=== PATIENT | male | born 1965 | race African-American/Black ===

== ENCOUNTER 2018-12-26 16:49 | Inpatient (IN) | payer OTHER ==
[2018-12-26 17:56] VITALS: BMI 32.8
--- NOTE | 2018-12-26 20:29 | HP ---
CIWA Score Nausea/Vomitin-Mild Nausea/No Vomiting Muscle Tremors: 1-None Visible, but Schuyler Anxiety: 4-Mod. Anxious/Guarded Agitation: 4-Moderately Restless Paroxysmal Sweats: 4-Forehead w/Sweat Beads Orientation: 2-Disoriented Date<2 days Tacttile Disturbances: 2-Mild Itch/Numbness/Burn Auditory Disturbances: 0-None Visual Disturbances: 1-Very Mild Sensitivity Headache: 3-Moderate CIWA-Ar Total Score: 22 - Admission Criteria OASAS Guidelines: Admission for Medically Managed Detox: Requires at least one of the followin. CIWA greater than 12 2. Seizures within the past 24 hours 3. Delirium tremens within the past 24 hours 4. Hallucinations within the past 24 hours 5. Acute intervention needed for co occurring medical disorder 6. Acute intervention needed for co occurring psychiatric disorder 7. Severe withdrawal that cannot be handled at a lower level of care (continued vomiting, continued diarrhea, abnormal vital signs) requiring intravenous medication and/or fluids 8. Patient presents the following: CIWA greater than 12 (ciwa 22), Acute intervention needed for co-occurring med or psych disorder (hx/o htn) Admission Criteria Met: Admission criteria met Admission ROS [facility] Chief Complaint: C/O WORSENING WITHDRAWAL SX'S Allergies/Adverse Reactions: Allergies Allergy/AdvReac Type Severity Reaction Status Date / Time No Known Allergies Allergy Verified 12/26/18 19:37 History of Present Illness: 53 Y.O. MALE WITH HX/O ALCOHOLISM HERE FOR DETOX. CLIENT IS REFERRED BY [facility] AFTER SEEKING SERVICES THEIR EARLIER BUT WAS AT [facility]. HE PRESENTS WITH C/O WORSENING WITHDRAWAL SX'S. CIWA 22. UTOX + THX, SOILA, BZO. CLIENT DENIES BENZO USE. STATES LAST DETOX 6 MONTHS AGO AT [facility]. HE REPORTS DRINKING 3 QUARTS OF HENESSEY AND 6- PACK -24 OZ BEER DAILY. LAST DRINK EARLY THIS MORNING. DENIES HX/O SIEZURES, AVH, SI/HI. REPORTS LONGEST CLEAN TIME 2 YEARS WHILE INCARCERATED. LIVES WITH FAMILY, UNEMPLOYED, DENIES LEGALS. PMHX- HTN, OA PSYCH- DENIES Exam Limitations: No Limitations - Ebola screening Have you traveled outside of the country in the last 21 days: No (N) Have you had contact with anyone from an Ebola affected area: No Have you been sick,other than usual withdrawal symptoms: No Do you have a fever: No - Review of Systems Constitutional: Chills, Diaphoresis, Loss of Appetite, Malaise, Night Sweats, Changes in sleep EENT: reports: Dental Problems (TOP DENTURES) Respiratory: reports: No Symptoms reported Cardiac: reports: No Symptoms Reported GI: reports: Diarrhea, Nausea, Poor Appetite, Poor Fluid Intake : reports: No Symptoms Reported Musculoskeletal: reports: No Symptoms Reported Integumentary: reports: Sweating Neuro: reports: No Symptoms reported, Tingling (TIPS OF FINGERS AND TOES) Endocrine: reports: No Symptoms Reported Hematology: reports: No Symptoms Reported Psychiatric: reports: Orientated x3, Agitated (IRRITABLE), Anxious Other Systems: Reviewed and Negative Patient History - Patient Medical History Hx Anemia: No Hx Asthma: No Hx Chronic Obstructive Pulmonary Disease (COPD): No Hx Cancer: No Hx Cardiac Disorders: No Hx Congestive Heart Failure: No Hx Hypertension: Yes Hx Hypercholesterolemia: No Hx Pacemaker: No HX Cerebrovascular Accident: No Hx Seizures: No Hx Dementia: No Hx Diabetes: No Hx Gastrointestinal Disorders: No Hx Liver Disease: No Hx Genitourinary Disorders: No Hx Sexually Transmitted Disorders: No Hx Renal Disease (ESRD): No Hx Thyroid Disease: No Hx Human Immunodeficiency Virus (HIV): No Hx Hepatitis C: No Hx Depression: No Hx Suicide Attempt: No Hx Bipolar Disorder: No Hx Schizophrenia: No Other Medical History: OA, HX/O +PPD W/ TXMENT - Patient Surgical History Past Surgical History: No Hx Neurologic Surgery: No Hx Cataract Extraction: No Hx Cardiac Surgery: No Hx Lung Surgery: No Hx Breast Surgery: No Hx Breast Biopsy: No Hx Abdominal Surgery: No Hx Appendectomy: No Hx Cholecystectomy: No Hx Genitourinary Surgery: No Hx Section: No Hx Orthopedic Surgery: No Anesthesia Reaction: No - PPD History Previous Implant?: Yes Documented Results: Positive w/o proof Implanted On Prior [facility] Admission?: No PPD to be Administered?: No - Smoking Cessation Smoking history: Current every day smoker Have you smoked in the past 12 months: Yes Aproximately how many cigarettes per day: 60 Cigars Per Day: 0 Hx Chewing Tobacco Use: No Initiated information on smoking cessation: Yes 'Breaking Loose' booklet given: 12/26/18 - Substance & Tx. History Hx Alcohol Use: Yes Hx Substance Use: Yes Substance Use Type: Alcohol, Cocaine, Marijuana Hx Substance Use Treatment: Yes ([facility]) - Substances Abused Alcohol Route: Oral Frequency: Daily Amount used: liquor- 3 quarts/ BEER- 6 PACK/24OZ CANS Age of first use: 20 Date of Last Use: 12/26/18 Cocaine Route: Inhalation Frequency: Daily Amount used: 1 gm Age of first use: 25 Date of Last Use: 12/24/18 THC Route: Smoking Frequency: 3-6 times per week Amount used: $20 Age of first use: 20 Date of Last Use: 12/23/18 Family Disease History - Family Disease History Family Disease History: Other: Father (ALCOHOLISM/ HEROIN ADDICT/COCAINE) Admission Physical Exam [facility] - Vital Signs Vital Signs: Vital Signs - 24 hr 12/26/18 17:55 Temperature 98.6 F Pulse Rate 107 H Respiratory 18 Rate Blood Pressure 133/77 - Physical General Appearance: Yes: Appropriately Dressed, Moderate Distress, Tremorous ( FELT), Irritable, Sweating, Anxious HEENTM: Yes: EOMI, Normocephalic, Normal Voice, NAGA, Pharynx Normal, Other ( TOP DENTURES) Respiratory: Yes: Chest Non-Tender, Lungs Clear, Normal Breath Sounds, No Respiratory Distress, No Accessory Muscle Use Neck: Yes: No masses,lesions,Nodules, Supple, Trachea in good position Breast: Yes: Breast Exam Deferred Cardiology: Yes: Regular Rhythm, Regular Rate, S1, S2 Abdominal: Yes: Non Tender, Soft, Increased Bowel Sounds, Protuberent Genitourinary: Yes: Other (NO C/O) Back: Yes: Normal Inspection Musculoskeletal: Yes: Gait Steady, Joint Stiffness (LEFT KNEE CHRONIC PAIN) Extremities: Yes: Normal Capillary Refill, Normal Range of Motion, Non-Tender, Tremors (FELT) Neurological: Yes: Fully Oriented, Alert, Motor Strength 5/5 Integumentary: Yes: Warm, Moist Lymphatic: Yes: Within Normal Limits - Diagnostic (1) Alcohol dependence with uncomplicated withdrawal Current Visit: Yes Status: Acute (2) Cannabis dependence, uncomplicated Current Visit: Yes Status: Acute (3) Cocaine dependence, uncomplicated Current Visit: Yes Status: Acute (4) HTN (hypertension) Current Visit: Yes Status: Chronic Qualifiers: Hypertension type: essential hypertension Qualified Code(s): I10 - Essential (primary) hypertension (5) Osteoarthritis (arthritis due to wear and tear of joints) Current Visit: Yes Status: Chronic Qualifiers: Osteoarthritis location: knee Laterality: bilateral (6) Substance-induced sleep disorder Current Visit: Yes Status: Chronic (7) Nicotine dependence Current Visit: Yes Status: Chronic Qualifiers: Nicotine product type: cigarettes Substance use status: uncomplicated Qualified Code(s): F17.210 - Nicotine dependence, cigarettes, uncomplicated (8) History of positive PPD Current Visit: Yes Status: Chronic Comment: TX'ED Cleared for Admission [facility] - Detox or Rehab [facility] Level of Care: Medically Managed Detox Regimen/Protocol: Librium Claeared for Rehab Admission: No S Breath Alcohol Content Breath Alcohol Content: 0 Urine Drug Screen - Results Drug Screen Negative: No Urine Drug Screen Results: THC-Marijuana, SOILA-Cocaine, BZO-Benzodiazepines Inpatient Rehab Admission - Rehab Decision to Admit Inpatient rehab admission?: No
[2018-12-26] MEDS ORDERED: hydrOXYzine PAMOATE 25 MG CAPSULE (FP) PO PRN (20:35)
[2018-12-26] MEDS ORDERED: guaiFENesin 200 MG/10 ML 10 ML UNIT-DOSE CUPS PO PRN (20:35)
[2018-12-26] MEDS ORDERED: ONDANSETRON *ODT* 4 MG TABLET SL PRN (20:35)
[2018-12-26] MEDS ORDERED: MENTHOL/PHENOL 1 EACH UD MM PRN (20:35)
[2018-12-26] MEDS ORDERED: MAGNESIUM HYDROX 2400MG/30ML ORAL SUSPENSION 30 ML CUP PO PRN (20:35)
[2018-12-26] MEDS ORDERED: METHOCARBAMOL 500 MG TABLET PO PRN (20:35)
[2018-12-26] MEDS ORDERED: P-EPHED 60MG/TRIPROLIDI 2.5MG TABLET PO PRN (20:35)
[2018-12-26] MEDS ORDERED: IBUPROFEN 400 MG TABLET (FP) PO PRN ×2 (20:35)
[2018-12-26] MEDS ORDERED: BISMUTH SUBSALICYLATE 524 MG/30 ML UD PO PRN (20:35)
[2018-12-26] MEDS ORDERED: MAGNESIUM CITRATE 300 ML BOTTLE PO PRN (20:35)
[2018-12-26] MEDS ORDERED: MAG HYDROX/AL HYDROX/SIMETH 30 ML UNIT-DOSE CUP PO PRN (20:35)
[2018-12-26] MEDS ORDERED: ACETAMINOPHEN 325 MG TABLET (FP) PO PRN ×2 (20:35)
[2018-12-26] MEDS: chlordiazePOXIDE HCL 25 MG CAPSULE PO SCH (22:41)
[2018-12-26] MEDS: THIAMINE HCL 100 MG TABLET (FP) PO SCH (22:41)
[2018-12-27] MEDS: chlordiazePOXIDE HCL 25 MG CAPSULE PO SCH ×4 (05:50→22:30)
--- NOTE | 2018-12-27 10:28 | PN ---
[facility] CIWA - CIWA Score Nausea/Vomitin Muscle Tremors: 2 Anxiety: 2 Agitation: 2 Paroxysmal Sweats: 2 Orientation: 0-Oriented Tacttile Disturbances: 2-Mild Itch/Numbness/Burn Auditory Disturbances: 0-None Visual Disturbances: 0-None Headache: 2-Mild CIWA-Ar Total Score: 14 [facility] Progress Note (SOAP) Subjective: Interrupted sleep, tremors, muscle aches Objective: 12/27/18 10:27 Last Vital Signs Temp Pulse Resp BP Pulse Ox 97.7 F 83 18 143/74 12/27/18 09:58 12/27/18 09:58 12/27/18 09:58 12/27/18 09:58 Labs pending Assessment: 12/27/18 10:27 Withdrawal sx Plan: Continue detox
[2018-12-27 10:45] LABS: HEMATOCRIT 40.3 % (35.4-49); HEMOGLOBIN 13.8 GM/dL (11.7-16.9); MCH 30.3 pg (25.7-33.7); MCHC 34.3 g/dl (32.0-35.9); MEAN CELL VOLUME 88.5 fl (80-96); MEAN PLT VOLUME 6.8 fl (7.5-11.1); PLATELET COUNT 220 K/MM3 (134-434); RBC 4.56 M/mm3 (4.00-5.60); RDW 13.8 % (11.9-15.9); WHITE BLOOD COUNT 6.2 K/mm3 (4.0-10.0)
[2018-12-27] MEDS: PRENATAL VITAMINS W/ FOLIC ACID TABLET (FP) PO SCH (10:55)
[2018-12-27 11:08] LABS: ALBUMIN 3.4 g/dl (3.4-5.0); ANION GAP 7 MMOL/L (8-16); BILIRUBIN,TOTAL 0.2 mg/dL (0.2-1); BLOOD UREA NITROGEN 17 mg/dL (7-18); CALCIUM 8.1 mg/dL (8.5-10.1); CHLORIDE 108 mmol/L (98-107); CO2 26 mmol/L (21-32); GLUCOSE,RANDOM 89 mg/dL (74-106); POTASSIUM 3.9 mmol/L (3.5-5.1); SODIUM 141 mmol/L (136-145)
[2018-12-27 11:09] LABS: ALK PHOS 60 U/L (45-117); SGOT/AST 15 U/L (15-37); SGPT/ALT 27 U/L (13-61)
[2018-12-27] MEDS: NICOTINE 21 MG/24 HOURS TOPICAL PATCH TD SCH (12:02)
[2018-12-27] MEDS: NICOTINE POLACRILEX 4 MG GUM BUC PRN (12:03)
--- NOTE | 2018-12-27 13:10 | EKG ---
Test Reason : Blood Pressure : / mmHG Vent. Rate : 096 BPM Atrial Rate : 096 BPM P-R Int : 136 ms QRS Dur : 082 ms QT Int : 360 ms P-R-T Axes : 068 031 050 degrees QTc Int : 454 ms NORMAL SINUS RHYTHM NORMAL ECG NO PREVIOUS ECGS AVAILABLE Confirmed by MD NHUNG, NISHA ([id number]) on 12/27/2018 1:09:46 PM Referred By: Confirmed By:NISHA HOOKER MD
[2018-12-27] MEDS: chlordiazePOXIDE HCL 25 MG CAPSULE PO PRN (17:16)
[2018-12-27] MEDS: THIAMINE HCL 100 MG TABLET (FP) PO SCH (22:31)
[2018-12-27] MEDS: MELATONIN 5 MG TABLETS PO PRN (22:32)
[2018-12-28] MEDS: chlordiazePOXIDE HCL 25 MG CAPSULE PO SCH ×3 (07:36→17:25)
[2018-12-28] MEDS: PRENATAL VITAMINS W/ FOLIC ACID TABLET (FP) PO SCH (10:24)
[2018-12-28] MEDS: NICOTINE 21 MG/24 HOURS TOPICAL PATCH TD SCH (11:00)
--- NOTE | 2018-12-28 11:40 | PN ---
[facility] CIWA - CIWA Score Nausea/Vomitin-No Nausea/No Vomiting Muscle Tremors: 2 Anxiety: 3 Agitation: 1-Slight > Activity Paroxysmal Sweats: 3 Orientation: 0-Oriented Tacttile Disturbances: 1-Very Mild Itch/Numbness Auditory Disturbances: 0-None Visual Disturbances: 0-None Headache: 0-None Present CIWA-Ar Total Score: 10 S Progress Note (SOAP) Subjective: c/o interrupted sleep, tremors, fatigue Objective: 12/28/18 11:39 Vital Signs Temperature 98.2 F 12/28/18 09:30 Pulse Rate 91 H 12/28/18 09:30 Respiratory Rate 16 12/28/18 09:30 Blood Pressure 139/86 12/28/18 09:30 O2 Sat by Pulse Oximetry (%) Laboratory Last Values WBC 6.2 K/mm3 (4.0-10.0) 12/27/18 07:50 RBC 4.56 M/mm3 (4.00-5.60) 12/27/18 07:50 Hgb 13.8 GM/dL (11.7-16.9) 12/27/18 07:50 Hct 40.3 % (35.4-49) 12/27/18 07:50 MCV 88.5 fl (80-96) 12/27/18 07:50 MCH 30.3 pg (25.7-33.7) 12/27/18 07:50 MCHC 34.3 g/dl (32.0-35.9) 12/27/18 07:50 RDW 13.8 % (11.9-15.9) 12/27/18 07:50 Plt Count 220 K/MM3 (134-434) 12/27/18 07:50 MPV 6.8 fl (7.5-11.1) L 12/27/18 07:50 Sodium 141 mmol/L (136-145) 12/27/18 07:50 Potassium 3.9 mmol/L (3.5-5.1) 12/27/18 07:50 Chloride 108 mmol/L (98-107) H 12/27/18 07:50 Carbon Dioxide 26 mmol/L (21-32) 12/27/18 07:50 Anion Gap 7 MMOL/L (8-16) L 12/27/18 07:50 BUN 17 mg/dL (7-18) 12/27/18 07:50 Creatinine 1.0 mg/dL (0.55-1.3) 12/27/18 07:50 Creat Clearance w eGFR 78.47 (>60) 12/27/18 07:50 Random Glucose 89 mg/dL (74-106) 12/27/18 07:50 Calcium 8.1 mg/dL (8.5-10.1) L 12/27/18 07:50 Total Bilirubin 0.2 mg/dL (0.2-1) 12/27/18 07:50 AST 15 U/L (15-37) 12/27/18 07:50 ALT 27 U/L (13-61) 12/27/18 07:50 Alkaline Phosphatase 60 U/L (45-117) 12/27/18 07:50 Total Protein 6.0 g/dl (6.4-8.2) L 12/27/18 07:50 Albumin 3.4 g/dl (3.4-5.0) 12/27/18 07:50 RPR Titer Nonreactive (NONREACTIVE) 12/27/18 07:50 labs noted Aox3 no distress, full ROM, ambulating in the unit Assessment: 12/28/18 11:40 withdrawal sx Plan: increase PO fluids continue detox continue to monitor
[2018-12-28] MEDS: chlordiazePOXIDE HCL 25 MG CAPSULE PO PRN (12:35)
[2018-12-28] MEDS ORDERED: amLODIPine BESYLATE 10 MG TABLET (FP) PO ONE (17:15)
[2018-12-28] MEDS ORDERED: cloNIDine HCL 0.1 MG TABLET PO ONE (17:15)
[2018-12-28] MEDS ORDERED: HYDROCHLOROTHIAZIDE 25 MG TABLET (FP) PO ONE (17:15)
--- NOTE | 2018-12-28 17:19 | PN ---
S Progress Note Note: history of hypertension bp 153/93 anxious lonidine 0.1 mg po now hydrochlorothiazide 25 mgs po now then daily amlodipine 10 mgs po now then daily continue vital signs monitorig and detox
[2018-12-28] MEDS: THIAMINE HCL 100 MG TABLET (FP) PO SCH (23:05)
[2018-12-28] MEDS: MELATONIN 5 MG TABLETS PO PRN (23:05)
[2018-12-28] MEDS: chlordiazePOXIDE HCL 10 MG CAPSULE PO SCH (23:05)
[2018-12-29] MEDS: chlordiazePOXIDE HCL 10 MG CAPSULE PO SCH ×2 (07:35→10:54)
[2018-12-29 09:13] VITALS: TEMP 97.9
[2018-12-29 10:00] LABS: URINE APPEARANCE CLEAR; URINE BILIRUBIN NEGATIVE (<2.0 mg/dL); URINE COLOR STRAW; URINE GLUCOSE (UA) NEGATIVE (NEGATIVE); URINE KETONE NEGATIVE (NEGATIVE); URINE LEUK ESTERASE NEGATIVE (NEGATIVE); URINE NITRITE NEGATIVE (NEGATIVE); URINE PROTEIN NEGATIVE (NEGATIVE); URINE UROBILINOGEN NEGATIVE mg/dL (0.2-1.0)
[2018-12-29] MEDS ORDERED: amLODIPine BESYLATE 10 MG TABLET (FP) PO SCH (10:00)
[2018-12-29] MEDS ORDERED: HYDROCHLOROTHIAZIDE 25 MG TABLET (FP) PO SCH (10:00)
[2018-12-29] MEDS: PRENATAL VITAMINS W/ FOLIC ACID TABLET (FP) PO SCH (10:54)
[2018-12-29] MEDS: NICOTINE 21 MG/24 HOURS TOPICAL PATCH TD SCH (10:54)
[2018-12-29] MEDS: NICOTINE POLACRILEX 4 MG GUM BUC PRN (10:56)
--- NOTE | 2018-12-29 13:23 | PN ---
[facility] Progress Note (SOAP) Subjective: Patient denies current Withdrawal / Detox symptoms and reports that he feels well overall. Objective: PATIENT A & O X 3, OBSERVED AMBULATING ON UNIT. IN NO ACUTE DISTRESS. 12/29/18 13:21 Vital Signs Temperature 97.9 F 12/29/18 09:12 Pulse Rate 103 H 12/29/18 09:12 Respiratory Rate 18 12/29/18 09:12 Blood Pressure 115/93 12/29/18 09:12 O2 Sat by Pulse Oximetry (%) Laboratory Tests 12/27/18 12/27/18 12/27/18 07:50 07:50 07:50 WBC 6.2 RBC 4.56 Hgb 13.8 Hct 40.3 MCV 88.5 MCH 30.3 MCHC 34.3 RDW 13.8 Plt Count 220 MPV 6.8 L Sodium 141 Potassium 3.9 Chloride 108 H Carbon Dioxide 26 Anion Gap 7 L BUN 17 Creatinine 1.0 Creat Clearance w eGFR 78.47 Random Glucose 89 Calcium 8.1 L Total Bilirubin 0.2 AST 15 ALT 27 Alkaline Phosphatase 60 Total Protein 6.0 L Albumin 3.4 Urine Color Urine Appearance Urine pH Ur Specific [place] Urine Protein Urine Glucose (UA) Urine Ketones Urine Blood Urine Nitrite Urine Bilirubin Urine Urobilinogen Ur Leukocyte Esterase RPR Titer Nonreactive 12/29/18 07:40 WBC RBC Hgb Hct MCV MCH MCHC RDW Plt Count MPV Sodium Potassium Chloride Carbon Dioxide Anion Gap BUN Creatinine Creat Clearance w eGFR Random Glucose Calcium Total Bilirubin AST ALT Alkaline Phosphatase Total Protein Albumin Urine Color Straw Urine Appearance Clear Urine pH 5.0 Ur Specific [place] 1.012 Urine Protein Negative Urine Glucose (UA) Negative Urine Ketones Negative Urine Blood Negative Urine Nitrite Negative Urine Bilirubin Negative Urine Urobilinogen Negative Ur Leukocyte Esterase Negative RPR Titer LABS NOTED. Assessment: 12/29/18 13:21 COMPLETION OF DETOX REGIMEN. Plan: SINCE PATIENT DENIES CURRENT WITHDRAWAL / DETOX SYMPTOMS AND REPORTS THAT HE FEELS WELL OVERALL, AT PATIENT'S REQUEST, HE WAS GRANTED AN EARLY DISCHARGE FROM DETOX UNIT TO GO ON TO [facility] ([place], [place]) A BED IS CURRENTLY AVAILABLE THERE FOR ADMISSION.
[2018-12-29 13:24] VITALS: BP 116/92; PULSE 108
--- NOTE | 2018-12-29 13:29 | DS ---
[facility] Detox Discharge Summary Admission Date: 12/26/18 Discharge Date: 12/29/18 - History Present History: Alcohol Dependence, Cannabis Dependence, Cocaine Dependence Additional Comments: PATIENT DENIES CURRENT WITHDRAWAL / DETOX SYMPTOMS AND REPORTS THAT HE FEELS WELL OVERALL AT TIME OF DISCHARGE FROM DETOX UNIT. PATIENT GOING ON TO [facility] ([place], [place]) FOR AFTERCARE. PATIENT WAS DISCHARGED FROM DETOX UNIT TO BE TAKEN OVER TO REHAB UNIT IN STABLE MEDICAL CONDITION. Pertinent Past History: HTN, History of Osteoarthritis Of Bilateral Knees, Nicotine Dependence, History of Positive PPD (Completed Treatment in Past). - Physical Exam Results Vital Signs: Vital Signs Temperature 97.9 F 12/29/18 13:24 Pulse Rate 108 H 12/29/18 13:24 Respiratory Rate 18 12/29/18 13:24 Blood Pressure 116/92 12/29/18 13:24 O2 Sat by Pulse Oximetry (%) Pertinent Admission Physical Exam Findings: WITHDRAWAL SYMPTOMS. Laboratory Tests 12/27/18 12/27/18 12/27/18 07:50 07:50 07:50 WBC 6.2 RBC 4.56 Hgb 13.8 Hct 40.3 MCV 88.5 MCH 30.3 MCHC 34.3 RDW 13.8 Plt Count 220 MPV 6.8 L Sodium 141 Potassium 3.9 Chloride 108 H Carbon Dioxide 26 Anion Gap 7 L BUN 17 Creatinine 1.0 Creat Clearance w eGFR 78.47 Random Glucose 89 Calcium 8.1 L Total Bilirubin 0.2 AST 15 ALT 27 Alkaline Phosphatase 60 Total Protein 6.0 L Albumin 3.4 Urine Color Urine Appearance Urine pH Ur Specific [place] Urine Protein Urine Glucose (UA) Urine Ketones Urine Blood Urine Nitrite Urine Bilirubin Urine Urobilinogen Ur Leukocyte Esterase RPR Titer Nonreactive 12/29/18 07:40 WBC RBC Hgb Hct MCV MCH MCHC RDW Plt Count MPV Sodium Potassium Chloride Carbon Dioxide Anion Gap BUN Creatinine Creat Clearance w eGFR Random Glucose Calcium Total Bilirubin AST ALT Alkaline Phosphatase Total Protein Albumin Urine Color Straw Urine Appearance Clear Urine pH 5.0 Ur Specific [place] 1.012 Urine Protein Negative Urine Glucose (UA) Negative Urine Ketones Negative Urine Blood Negative Urine Nitrite Negative Urine Bilirubin Negative Urine Urobilinogen Negative Ur Leukocyte Esterase Negative RPR Titer LABS NOTED. - Treatment Hospital Course: Detox Protocol Followed, Detoxed Safely, Responded well, Discharged Condition Good, Rehab Referral Accepted Patient has Accepted a Rehab Referral to: [facility] ([place], [place]). - Medication Discharge Medications: Ambulatory Orders No Home Medications 07/15/12 - Diagnosis (1) Alcohol dependence with uncomplicated withdrawal Current Visit: Yes Status: Acute (2) Cannabis dependence, uncomplicated Current Visit: Yes Status: Acute (3) Cocaine dependence, uncomplicated Current Visit: Yes Status: Acute (4) HTN (hypertension) Current Visit: Yes Status: Chronic Qualifiers: Hypertension type: essential hypertension Qualified Code(s): I10 - Essential (primary) hypertension (5) History of positive PPD Current Visit: Yes Status: Chronic (6) Nicotine dependence Current Visit: Yes Status: Chronic Qualifiers: Nicotine product type: cigarettes Substance use status: uncomplicated Qualified Code(s): F17.210 - Nicotine dependence, cigarettes, uncomplicated (7) Osteoarthritis (arthritis due to wear and tear of joints) Current Visit: Yes Status: Chronic Qualifiers: Osteoarthritis location: knee Osteoarthritis type: unspecified Laterality : bilateral Qualified Code(s): M17.0 - Bilateral primary osteoarthritis of knee (8) Substance-induced sleep disorder Current Visit: Yes Status: Chronic - AMA Did Patient Leave Against Medical Advice: No
[2018-12-29] MEDS ORDERED: chlordiazePOXIDE HCL 10 MG CAPSULE PO SCH (23:00)
== END 2018-12-29 14:30 | disposition other institution (70) | DRG 774 ==
LOC: YASAS 16:49 → Y6N 21:23
PROVIDERS: ADMIT Surgery; ATTEND Surgery
PROC: HZ2ZZZZ Detoxification Services for Substance Abuse Treatment (ICD-10-PCS; principal; 2018-12-26)
DX: F10.230 Alcohol dependence with withdrawal, uncomplicated (principal); F14.20 Cocaine dependence, uncomplicated; F12.20 Cannabis dependence, uncomplicated; F17.210 Nicotine dependence, cigarettes, uncomplicated; F19.282 Other psychoactive substance dependence with psychoactive substance-induced sleep disorder; I10 Essential (primary) hypertension; R76.11 Nonspecific reaction to tuberculin skin test without active tuberculosis; M17.0 Bilateral primary osteoarthritis of knee
CPT/HCPCS: 36415; 71046-TC-FY; 80053; 81003; 85027; 86593; 93005; 93010; J0735

== ENCOUNTER 2018-12-29 14:56 | Inpatient (IN) | payer OTHER ==
--- NOTE | 2018-12-29 13:35 | HP ---
[facility] Rehab Assess/Revision - Admission History Admitted to Rehab from: [facility] Date of Admission to Rehab: 12/29/2018 - Vital signs Vital Signs: NOTED; STABLE. - Findings Detox History & Physical reviewed: Yes Concur with findings: Yes Comments/Additional Findings: PATIENT'S MEDICAL / MEDICATION HISTORY REVIEWED PRIOR TO DISCHARGE FROM DETOX UNIT. PRIOR TO DISCHARGE FROM DEOTX UNIT, PATIENT REPROTS RECENT HISTORY OF OUTPATIENT PRESCRIPTION FOR AMLODIPINE FOR TREATMENT OF HYPERTENSION. AMLODIPINE AND HCTZ PRESCRIBED WHILE PATIENT WAS ADMITTED FOR DETOX. WILL START BY CONTINUING AMLODIPINE FOR PATIENT INITIALLY WHILE HE IS ADMTITED FOR REHAB AND CONTINUE TO MONITOR BLOOD PRESSURE FOR EFFECT. PATIENT WAS DISCHARGED FROM DETOX UNIT TO BE TAKEN OVER TO REHAB UNIT IN STABLE MEDICAL CONDITION. Inpatient Rehab Admission - Rehab Decision to Admit Inpatient rehab admission?: Yes - Initial Determination Are CD services needed?: Yes Free of communicable disease: Yes Not in need of hospitalization: Yes - Rehab Admission Criteria Previous failed treatment: Yes Poor recovery environment: Yes Comorbidities: Yes Lacks judgement: No Patient is meeting Inpatient Rehab admission criteria:: Yes
[~2018-12-29 14:56] MED LIST: LOPERAMIDE HCL 2 MG CAPSULE PO PRN; MAG HYDROX/AL HYDROX/SIMETH 30 ML UNIT-DOSE CUP PO PRN; MAGNESIUM CITRATE 300 ML BOTTLE PO PRN; MAGNESIUM HYDROX 2400MG/30ML ORAL SUSPENSION 30 ML CUP PO PRN; MENTHOL/PHENOL 1 EACH UD MM PRN; P-EPHED 60MG/TRIPROLIDI 2.5MG TABLET PO PRN; guaiFENesin 200 MG/10 ML 10 ML UNIT-DOSE CUPS PO PRN
--- NOTE | 2018-12-29 17:14 | PN ---
[facility] Progress Note Note: RESULTS OF CXR (FOR HISTORY OF POSITIVE PPD) NOTED. NO ACUTE PROCESS PATHOLOGY NOTED IN RESULTS REPORT. Sanjana FELIPE FLIGHT INSTRUCTOR
[2018-12-29] MEDS: NICOTINE POLACRILEX 4 MG GUM BUC PRN (17:37)
[2018-12-29] MEDS: THIAMINE HCL 100 MG TABLET (FP) PO SCH (21:16)
[2018-12-29] MEDS: MELATONIN 5 MG TABLETS PO PRN (21:16)
[2018-12-30] MEDS: PRENATAL VITAMINS W/ FOLIC ACID TABLET (FP) PO SCH (10:20)
[2018-12-30] MEDS: amLODIPine BESYLATE 10 MG TABLET (FP) PO SCH (10:20)
[2018-12-30] MEDS: NICOTINE 21 MG/24 HOURS TOPICAL PATCH TD SCH (10:21)
[2018-12-30] MEDS: THIAMINE HCL 100 MG TABLET (FP) PO SCH (21:24)
[2018-12-30] MEDS: MELATONIN 5 MG TABLETS PO PRN (21:25)
[2018-12-30] MEDS: NICOTINE POLACRILEX 4 MG GUM BUC PRN (21:26)
[2018-12-31] MEDS: NICOTINE POLACRILEX 4 MG GUM BUC PRN ×3 (06:30→21:16)
[2018-12-31] MEDS: amLODIPine BESYLATE 10 MG TABLET (FP) PO SCH (10:02)
[2018-12-31] MEDS: PRENATAL VITAMINS W/ FOLIC ACID TABLET (FP) PO SCH (10:02)
[2018-12-31] MEDS: NICOTINE 21 MG/24 HOURS TOPICAL PATCH TD SCH (10:03)
[2018-12-31] MEDS: MELATONIN 5 MG TABLETS PO PRN (21:16)
[2018-12-31] MEDS: THIAMINE HCL 100 MG TABLET (FP) PO SCH (21:16)
[2019-01-01] MEDS: NICOTINE POLACRILEX 4 MG GUM BUC PRN ×2 (09:57→21:17)
[2019-01-01] MEDS: PRENATAL VITAMINS W/ FOLIC ACID TABLET (FP) PO SCH (09:57)
[2019-01-01] MEDS: amLODIPine BESYLATE 10 MG TABLET (FP) PO SCH (09:57)
[2019-01-01] MEDS: NICOTINE 21 MG/24 HOURS TOPICAL PATCH TD SCH ×2 (09:57→09:59)
[2019-01-01] MEDS: THIAMINE HCL 100 MG TABLET (FP) PO SCH (21:17)
[2019-01-01] MEDS: MELATONIN 5 MG TABLETS PO PRN (21:17)
[2019-01-02] MEDS: NICOTINE POLACRILEX 4 MG GUM BUC PRN ×3 (07:42→21:23)
[2019-01-02] MEDS: PRENATAL VITAMINS W/ FOLIC ACID TABLET (FP) PO SCH (09:54)
[2019-01-02] MEDS: amLODIPine BESYLATE 10 MG TABLET (FP) PO SCH (09:54)
[2019-01-02] MEDS: NICOTINE 21 MG/24 HOURS TOPICAL PATCH TD SCH (09:54)
[2019-01-02] MEDS: ACETAMINOPHEN 325 MG TABLET (FP) PO PRN (14:19)
--- NOTE | 2019-01-02 15:02 | PN ---
S Progress Note Note: PT C/O SEVERE KNEE PAIN AND TAKES MELOXICAM WHICH HE SAYS HE HAS IN HIS PROPERTY BUT WILL TAKE WHAT'S FORMULARY HERE. PT REPORTS HX OF SEVERE ARTHRITIS OF THE BILATERAL KNEE. PT WALKS WITH A LIMP DUE TO KNEE PAIN. DENIES SX ON THE KNEE. Vital Signs (72 hours) 12/31/18 12/31/18 12/31/18 00:30 03:30 06:30 Temperature 97.8 F Pulse Rate 92 H Respiratory 18 18 20 Rate Blood Pressure 125/88 01/01/19 01/01/19 01/01/19 00:30 03:30 07:04 Temperature 97.8 F Pulse Rate 95 H Respiratory 18 18 20 Rate Blood Pressure 144/83 01/02/19 01/02/19 01/02/19 00:30 03:30 06:48 Temperature 98.2 F Pulse Rate 94 H Respiratory 18 18 18 Rate Blood Pressure 142/90 A:ACUTE LEFT KNEE PAIN HX CHRONIC LEFT KNEE PAIN HX CHRONIC ATHRITIS, BILATERAL PLAN:BACLOPHEN 10 MG PO TID CATE BANDAGE APPLY TO LEFT KNEE PRN ANALGESIC BALM APPLY BID.
[2019-01-02] MEDS ORDERED: BACLOFEN 10 MG TABLET (FP) PO ONE (15:15)
[2019-01-02] MEDS: THIAMINE HCL 100 MG TABLET (FP) PO SCH (21:21)
[2019-01-02] MEDS: BACLOFEN 10 MG TABLET (FP) PO SCH (21:21)
[2019-01-02] MEDS: METHYL SALICYLATE/MENTHOL OINT 30 GM TUBE TP SCH (21:22)
[2019-01-03] MEDS: BACLOFEN 10 MG TABLET (FP) PO SCH ×3 (06:27→21:17)
[2019-01-03] MEDS: NICOTINE 21 MG/24 HOURS TOPICAL PATCH TD SCH (10:01)
[2019-01-03] MEDS: amLODIPine BESYLATE 10 MG TABLET (FP) PO SCH (10:01)
[2019-01-03] MEDS: PRENATAL VITAMINS W/ FOLIC ACID TABLET (FP) PO SCH (10:01)
[2019-01-03] MEDS: METHYL SALICYLATE/MENTHOL OINT 30 GM TUBE TP SCH ×2 (10:02→21:18)
[2019-01-03] MEDS: ACETAMINOPHEN 325 MG TABLET (FP) PO PRN (14:37)
[2019-01-03] MEDS: THIAMINE HCL 100 MG TABLET (FP) PO SCH (21:16)
[2019-01-03] MEDS: MELATONIN 5 MG TABLETS PO PRN (21:17)
[2019-01-03] MEDS: NICOTINE POLACRILEX 4 MG GUM BUC PRN (21:17)
[2019-01-04] MEDS: BACLOFEN 10 MG TABLET (FP) PO SCH ×3 (06:26→21:15)
[2019-01-04] MEDS: PRENATAL VITAMINS W/ FOLIC ACID TABLET (FP) PO SCH (09:49)
[2019-01-04] MEDS: NICOTINE 21 MG/24 HOURS TOPICAL PATCH TD SCH (09:49)
[2019-01-04] MEDS: amLODIPine BESYLATE 10 MG TABLET (FP) PO SCH (09:49)
[2019-01-04] MEDS: METHYL SALICYLATE/MENTHOL OINT 30 GM TUBE TP SCH ×2 (09:51→21:15)
[2019-01-04] MEDS: ACETAMINOPHEN 325 MG TABLET (FP) PO PRN (15:12)
[2019-01-04] MEDS: THIAMINE HCL 100 MG TABLET (FP) PO SCH (21:15)
[2019-01-04] MEDS: MELATONIN 5 MG TABLETS PO PRN (21:16)
[2019-01-04] MEDS: NICOTINE POLACRILEX 4 MG GUM BUC PRN (21:16)
[2019-01-05] MEDS: ACETAMINOPHEN 325 MG TABLET (FP) PO PRN (06:24)
[2019-01-05] MEDS: BACLOFEN 10 MG TABLET (FP) PO SCH ×3 (06:25→21:27)
[2019-01-05] MEDS: PRENATAL VITAMINS W/ FOLIC ACID TABLET (FP) PO SCH (10:10)
[2019-01-05] MEDS: amLODIPine BESYLATE 10 MG TABLET (FP) PO SCH (10:10)
[2019-01-05] MEDS: NICOTINE 21 MG/24 HOURS TOPICAL PATCH TD SCH (10:10)
[2019-01-05] MEDS: METHYL SALICYLATE/MENTHOL OINT 30 GM TUBE TP SCH ×2 (10:11→21:28)
[2019-01-05] MEDS: NICOTINE POLACRILEX 4 MG GUM BUC PRN (14:13)
[2019-01-05] MEDS: MELATONIN 5 MG TABLETS PO PRN (21:27)
[2019-01-05] MEDS: THIAMINE HCL 100 MG TABLET (FP) PO SCH (21:27)
[2019-01-06] MEDS: BACLOFEN 10 MG TABLET (FP) PO SCH ×3 (06:12→21:13)
[2019-01-06] MEDS: PRENATAL VITAMINS W/ FOLIC ACID TABLET (FP) PO SCH (09:56)
[2019-01-06] MEDS: amLODIPine BESYLATE 10 MG TABLET (FP) PO SCH (09:56)
[2019-01-06] MEDS: NICOTINE 21 MG/24 HOURS TOPICAL PATCH TD SCH (09:56)
[2019-01-06] MEDS: METHYL SALICYLATE/MENTHOL OINT 30 GM TUBE TP SCH ×2 (09:56→21:13)
[2019-01-06] MEDS: THIAMINE HCL 100 MG TABLET (FP) PO SCH (21:13)
[2019-01-07] MEDS: BACLOFEN 10 MG TABLET (FP) PO SCH ×3 (06:17→21:13)
[2019-01-07] MEDS: ACETAMINOPHEN 325 MG TABLET (FP) PO PRN (06:18)
[2019-01-07 06:45] VITALS: TEMP 98.1
[2019-01-07] MEDS: amLODIPine BESYLATE 10 MG TABLET (FP) PO SCH (10:08)
[2019-01-07] MEDS: PRENATAL VITAMINS W/ FOLIC ACID TABLET (FP) PO SCH (10:08)
[2019-01-07] MEDS: METHYL SALICYLATE/MENTHOL OINT 30 GM TUBE TP SCH ×2 (10:09→21:13)
[2019-01-07] MEDS: NICOTINE 21 MG/24 HOURS TOPICAL PATCH TD SCH (10:09)
[2019-01-07] MEDS: THIAMINE HCL 100 MG TABLET (FP) PO SCH (21:13)
[2019-01-08] MEDS: BACLOFEN 10 MG TABLET (FP) PO SCH (06:39)
[2019-01-08 06:55] VITALS: BP 135/83; PULSE 91
[2019-01-08] MEDS: PRENATAL VITAMINS W/ FOLIC ACID TABLET (FP) PO SCH (10:38)
[2019-01-08] MEDS: ACETAMINOPHEN 325 MG TABLET (FP) PO PRN (10:38)
[2019-01-08] MEDS: amLODIPine BESYLATE 10 MG TABLET (FP) PO SCH (10:38)
[2019-01-08] MEDS: NICOTINE 21 MG/24 HOURS TOPICAL PATCH TD SCH (10:39)
[2019-01-08] MEDS: METHYL SALICYLATE/MENTHOL OINT 30 GM TUBE TP SCH (10:39)
[2019-01-08] MEDS: NICOTINE POLACRILEX 4 MG GUM BUC PRN (10:40)
--- NOTE | 2019-01-08 12:15 | PN ---
[facility] Progress Note Note: PT REQUESTS EARLY DISCHARGE TODAY. ALERT O X 3. PT REPORTS HE HAS PRIMARY CARE WITH [facility] [address] [place], [place] FOR MEDICAL MANAGEMENT. PT SAW HIS COUNSELOR AND HAS BEEN REFERRED TO [facility] FOR FOLLOW UP. PT STATES HE HAS APPOINTMENT TO SEE HIS PMD TODAY. PT REPORTS HE HAS OWN MEDS IN PROPERT. ALERT O X 3. DENIES S/H/I. PT REPORTS HE HAS OWN MEDS IN SECURITY PROPERTY. Home Medications Medication Instructions Recorded Meloxicam [Mobic] 15 mg PO DAILY PRN 01/02/19 Amlodipine Besylate [Norvasc -] 10 mg PO DAILY 01/08/19 Vital Signs (72 hours) 01/06/19 01/06/19 01/06/19 00:30 03:30 06:48 Temperature 97.8 F Pulse Rate 91 H Respiratory 18 18 20 Rate Blood Pressure 140/84 01/06/19 01/07/19 01/07/19 10:00 00:30 03:30 Temperature Pulse Rate 100 H Respiratory 18 18 Rate Blood Pressure 124/75 01/07/19 01/08/19 01/08/19 06:44 00:30 03:30 Temperature 98.1 F Pulse Rate 98 H Respiratory 18 18 18 Rate Blood Pressure 137/87 01/08/19 06:54 Temperature 98.1 F Pulse Rate 91 H Respiratory 18 Rate Blood Pressure 135/83 NAD MEDICALLY STABLE PLAN:FOLLOW UP WITH PMD TODAY PLANNED FOLLOW UP WITH CD AFTERCARE RECOMMENDED. Current Active Problems Alcohol dependence (Chronic) Knee pain, left (Acute) Cannabis dependence, uncomplicated (Chronic) Cocaine dependence, uncomplicated (Chronic) HTN (hypertension) (Chronic) Nicotine dependence (Chronic) Osteoarthritis (arthritis due to wear and tear of joints) (Chronic)
== END 2019-01-08 13:50 | disposition home or self-care (01) | DRG 772 ==
LOC: YASAS 14:56 → Y5N 15:02
PROVIDERS: ADMIT Neuromusculoskeletal Medicine & OMM; ATTEND Neuromusculoskeletal Medicine & OMM
PROC: HZ42ZZZ Group Counseling for Substance Abuse Treatment, Cognitive-Behavioral (ICD-10-PCS; principal; 2018-12-29)
DX: F10.20 Alcohol dependence, uncomplicated (principal); F14.20 Cocaine dependence, uncomplicated; F12.20 Cannabis dependence, uncomplicated; F17.210 Nicotine dependence, cigarettes, uncomplicated; I10 Essential (primary) hypertension; M19.90 Unspecified osteoarthritis, unspecified site; M25.562 Pain in left knee; G89.29 Other chronic pain; R76.11 Nonspecific reaction to tuberculin skin test without active tuberculosis
CPT/HCPCS: J0475